=== PATIENT | female | born 1970 | race Asian ===

== ENCOUNTER → 2023-09-27 06:28 | Day surgery (SDC) | payer OTHER, SELFPAY | LOC: GI 06:28 | PROVIDERS: ATTENDING PHYSICIAN Internal Medicine | DX: Z12.11 Encounter for screening for malignant neoplasm of colon (principal); K64.8 Other hemorrhoids; R10.13 Epigastric pain; K29.50 Unspecified chronic gastritis without bleeding; B96.81 Helicobacter pylori [H. pylori] as the cause of diseases classified elsewhere | CPT/HCPCS: 43239; G0121; 88305; 88342 ==

== ENCOUNTER 2024-06-07 17:53 | Inpatient (IN) | payer OTHER, SELFPAY ==
[2024-06-07] VITALS (9 sets, daily range): BP systolic 90–134; BP diastolic 62–82; BMI 22.1; BMI 22.6
[2024-06-07 14:25] LABS: Urine Albumin 2+ (Neg - Trace); Urine Bilirubin Negative (Negative); Urine Character Clear (Clear); Urine Color Yellow; Urine Glucose 4+ (Negative); Urine Ketone Negative (Negative); Urine Leukocyte 2+ (Negative); Urine Nitrite Positive (Negative); Urine Occult Blood 3+ (Negative); Urine Specific Gravity 1.015 (<1.030); Urine Urobilinogen Negative (Neg - 1+)
[2024-06-07 14:35] LABS: Urine Bacteria Many (Negative); Urine Red Blood Cell 50-60 /HPF (0-2); Urine Squamous Cell >30 /LPF (Few); Urine White Cell >100 /HPF (0-5)
--- NOTE | 2024-06-07 14:41 | ED.GENMED ---
History of Present Illness
General
Chief Complaint: Abdominal Pain
Source: patient
Exam Limitations: none
Time Seen by Provider: 06/07/24 14:29
Nursing documentation reviewed up to this point in time: agreed with
History of Present Illness
History of Present Illness:
The patient is a 54 year old female with hx HTN presenting to the emergency department with 3 days of upper abdominal pain and fevers. Patient reports intermittent upper abdominal pain over the past 6 months which seem to come and go. However�pain
returned on Wednesday and has been relatively constant and associated with chills and subjective fevers. Patient denies any associated nausea, vomiting, or diarrhea. She denies any chest pain or shortness of breath�however states that when she takes
a deep breath it does exacerbate her abdominal pain. No urinary symptoms.
Patient denies any clear correlation to eating. No positional component to symptoms although seems to be worse with movement.
Past History
Past History
ED Past Medical History: HTN
ED Past Surgical History: None
Social History
Tobacco: Non-smoker
Alcohol: Occasional
Drug: None
Personal:
Living: with family
Employment: Employed
Review of Systems
Review of Systems
Allergies reviewed?: Yes
All Other Systems: ROS reviewed and negative except as documented in HPI and ROS
Phy Exam
Physical Exam
Physical Exam:
Vitals: BP soft, tachycardic. Afebrile
General: Patient is in no apparent distress.
Skin: Warm and dry, no rashes or lesions
Head: Normocephalic, atraumatic
Eyes: Sclera nonicteric. EOMs intact. No nystagmus.
Throat: Protecting airway
Neck: Normal ROM, no cervical spine tenderness, no meningismus. No JVD
Cardiac: Tachycardic, normal, no murmurs.
Pulm: Normal respiratory effort, no wheezes, rales, rhonchi heard on exam.
Abdomen: Abdomen soft. Mild tenderness in right upper quadrant and epigastric region. No rebound tenderness or guarding. Mild right CVA tenderness
Extremities: No evidence of cyanosis or edema. Palpable DP pulses bilaterally
Neuro: AAOx3. Grossly intact
Psychiatric: Normal affect.
Course
Orders/Labs/Results
Orders:
Orders
06/07/24 Breakfast
Clear Liquid
At Your Request: Limited Participation
06/07/24 14:12
Electrocardiogram (*1) Urgent
Reason for Study: Other
Other Reason for Exam: Possible Sepsis
EKG- Treatment ONCE
IV Insert/Care/Rem.- Treatment PRN
Test Result ONCE
06/07/24 14:20
Urinalysis Reflex To Culture Urgent
Date Specimen was Collected: 06/07/24
Time Specimen was Collected: 14:11
Urine Microscopic Reflex Cult Urgent
Urine Culture Urgent
ADDIE Source: U
Specimen Description:
Date Specimen was Collected: 06/07/24
Time Specimen was Collected: 14:11
06/07/24 14:33
Complete Blood Count/With Diff Urgent
Comprehensive Metabolic Panel Urgent
HCG, Serum Qualitative Screen Urgent
Comment: Notify provider if positive test present
Lipase Urgent
06/07/24 14:37
0.9% Sodium Chloride 1000 ml [Nss] 1,000 ml IV BOLUS
Ketorolac [Toradol] 15 mg IV NOW STA
06/07/24 14:40
Troponin I Urgent
06/07/24 15:20
CT Abd/pelvis W Iv Cont Urgent
Comment:
Reason For Exam: Right flank pain, fever
06/07/24 15:31
Lactic Acid Q4H
Comment: CANCEL 2nd LACTIC ACID IF 1st LACTIC ACID IS LESS THAN 2
Blood Culture Q30M
ADDIE Source: Blood/Venous
Specimen Description:
06/07/24 16:33
CefTRIAXone [Rocephin] 1,000 mg IV NOW STA
06/07/24 16:58
Blood Culture Q30M
ADDIE Source: Blood/Venous
Specimen Description:
06/07/24 16:59
Admit/Transfer Patient As Directed
Co-Sign Provider:
Level of Care: Inpatient admission
Assign to:: Medical/Surgical
Physician / Group: Lyle
Diagnosis: Pyelonephritis
Reason for Hospitalization: IVFs, IV abx
Expected length of stay greater than two midnights?: Yes
ELOS- Estimated Length of Stay in days: 3
I certify the patient meets the requirements for IP care: Yes
06/07/24 17:00
0.9% Sodium Chloride 1000 ml [Nss] 1,000 ml IV 125 mls/hr
06/07/24 17:02
PRN Pain Medication Management As Directed
May give lesser potent ordered pain med per pt: Yes
preference::
Protocol:: Medication orders for pain may be administered in a
manner that supports deferring to patient preference
when the pt is:
- Requesting an ordered lesser potent pain medication.
Least to most potent pain medications are defined
as: acetaminophen < NSAID < tramadol < opioids
(morphine, oxycodone, hydromorphone).
- Requesting a lesser dose of the same medication IF
ORDERED.
- Requesting a less intrusive route of administration
if both routes are prescribed by the provider (PO <
IV).
06/07/24 17:04
Code Status As Directed
Resuscitation Status: Full Code
06/07/24 17:37
US Abdomen Complete/Upper Urgent
Comment:
Reason For Exam: RUQ Pain
06/07/24 19:06
0.9% Sodium Chloride [Nss (Preservative Free)] See Protocol IV PRN PRN
Acetaminophen [Tylenol] 650 mg PO Q4HPRN PRN
Dextrose 50%-Water [Dextrose 50% Syringe] 12.5 grams IV [id number] PRN
Enoxaparin Sodium [Lovenox] 40 mg SC QPM
FOLic ACID [Folvite] 1 mg 0.9% Sodium Chloride 50 ml [Nss] 50 ml IV DAILYPRN
Glucagon [GlucaGen] 1 mg IM PRN PRN
Lorazepam [Ativan] 1 mg IV Q1HPRN PRN
Lorazepam [Ativan] 1 mg PO Q2HPRN PRN
Lorazepam [Ativan] 2 mg IV Q1HPRN PRN
Ondansetron Injectable [Zofran] 4 mg IV Q6HPRN PRN
06/07/24 19:06
Case Management Consult Once
Case Management Consult: Other
Comment: Substance abuse counseling
Activity As Directed
Activity Level: Out of Bed-Early Mobility
With Assistance
Bedside Glucose Monitoring As Directed
Frequency: AC&HS
Additional Instructions:: Change to q6h if pt on TPN, tube feeding or not eating
I&O [Intake/ Output] As Directed
Frequency: q12h
MSAS SCORE As Directed
MSAS Score 0-4: Repeat MSAS every 2 hours until 0-4 for three consecutive assessments, then every 4 hours x 48
hours.
MSAS Score 5-7: For MILD withdrawl symptoms. Repeat MSAS and RASS every 2 hours
MSAS Score 8-11: For MODERATE withdrawal symptoms. Repeat MSAS and RASS every 1 hour. Consider ICU or IMU
level of care.
MSAS Score > 11: For SEVERE withdrawal symptoms. Repeat MSAS and RASS every 1 hour. Notify provider, consider
ICU level of care.
MSAS Additional Instructions: If no improvement or no decrease in score from severe to moderate within 12
hours, consult psychiatry
MSAS Notify Provider: Notify provider if patient requires more than 10 mg of Lorazepam in eight hour period.
Vital Signs As Directed
Frequency: q4h
DX Deep Vein Thrombosis Video Routine
06/07/24 20:00
Thiamine Injection 200 mg IV Q12
06/08/24 06:00
Complete Blood Count/No Diff IN AM
GGTP IN AM
Hgba1c [Glycohemoglobin (HgbA1c)] IN AM
Magnesium IN AM
PTT IN AM
Phosphorus IN AM
Prothrombin Time IN AM
06/08/24 07:30
Insulin Aspart Corrective Low [Novolog Flexpen-Low Resistance] See Protocol SC AC
06/08/24 08:00
FOLic ACID [Folvite] 1 mg PO DAILY
06/08/24 16:00
CefTRIAXone [Rocephin] 1,000 mg IV Q24H
06/10/24 20:00
Thiamine HCl [Vitamin B1] 100 mg PO BID
Abnormal Lab Results
06/07/24 06/07/24
14:20 14:33
RBC 3.49 L 10^6/uL
(4.20-5.40)
Hct 35.0 L %
(37.0-47.0)
MCV 100.3 H fL
(81.0-99.0)
MCH 35.2 H pg
(27.0-31.0)
Absolute Lymphs (auto) 0.8 L 10^3/uL
(1.2-3.4)
Absolute Monos (auto) 0.9 H 10^3/uL
(0.1-0.6)
Neutrophils % 78.0 H %
(42.2-75.2)
Lymphocytes % 9.4 L %
(20.5-51.1)
Monocytes % 11.2 H %
(1.7-9.3)
Glucose 220 H mg/dl
(70-99)
AST 56 H U/L
(14-36)
Total Protein 6.2 L g/dl
(6.3-8.2)
Ur Occult Blood Reflex 3+ A
(Negative)
Urine Nitrite (Reflex) Positive A
(Negative)
Leukocyte Esterase Rfl 2+ A
(Negative)
Urine RBC 50-60 A /HPF
(0-2)
Urine WBC (Reflex) >100 A /HPF
(0-5)
Urine Bacteria (Reflex) Many A
(Negative)
Urine Glucose 4+ A
(Negative)
Urine Albumin (Reflex) 2+ A
(Neg - Trace)
06/07/24 14:33
06/07/24 14:33
Vital Signs
Initial and Last Documented VS:
Initial Vital Signs
Temp Pulse Resp BP Pulse Ox
98.7 F 94 16 120/76 98
06/07/24 14:09 06/07/24 14:09 06/07/24 14:09 06/07/24 14:09 06/07/24 14:09
Last Documented Vital Signs
Temp Pulse Resp BP Pulse Ox
99.7 F 81 20 134/82 99
06/07/24 19:09 06/07/24 19:09 06/07/24 19:09 06/07/24 19:09 06/07/24 19:09
MDM/Problems Addressed
Differential Diagnosis Includes:
Not limited to: Acute cholecystitis, biliary colic, pancreatitis, cholangitis, cholangitis, UTI, pyelonephritis, nephrolithiasis, etc.
MDM/Problems Addressed:
54-year-old female presenting with intermittent right upper abdominal pain becoming more constant over the past 3 days and associated with subjective fevers. No chest pain, shortness of breath, vomiting. No urinary symptoms. Patient with soft BP
and tachycardic on arrival. She is afebrile. Physical exam as above. Patient in no apparent distress. Abdomen soft with mild tenderness in epigastric/right upper quadrant. No rebound tenderness or guarding. There is some mild right CVA
tenderness, as well. Cardio/pulmonary assessment unremarkable. Basic screening labs were sent in triage significant for hyperglycemia. No leukocytosis or abnormalities in LFTs. Urine also sent in triage which appears grossly infected.
Differential broad at this time. Initially considered right upper quadrant ultrasound to evaluate hepatobiliary system for infectious process although given no leukocytosis/LFT abnormalities along with grossly infected urine�will check CT
abdomen/pelvis with IV contrast with concerns of possible pyelonephritis. Patient given IV Toradol and 1 L IV fluids.
Update: Into reassess patient at bedside. Blood pressure mildly improved after IV fluid along with normalization of heart rate. CT scan shows findings consistent with pyelonephritis. No evidence of gallbladder etiology on CT. Discussed with
patient at bedside. Given abnormal vital signs and evidence of pyelonephritis�feel patient should be admitted for IV antibiotics and further monitoring. Patient given IV Rocephin in ED. As she is still complaining of right upper abdominal pain�I
did consider abdominal ultrasound to ensure no gallbladder disease although will defer decision to hospitalist. Admitted to hospital service in stable condition with acute pyelonephritis and for IV antibiotics.
Chronic conditions affecting care:
HTN
Acute Exacerbation and/or Progression of Chronic Illness:
Acute pyelonephritis
*Radiology
Radiology exam reviewed: preliminary read by ED provider (Stranding of right kidney) and radiology read reviewed (Findings consistent with right pyelonephritis; no abnormalities of gallbladder)
*Pulse Oximetry
Patient hypoxic: no
*EKG
Interpreted by ED Provider?: Yes
EKG Intrepretation Date: 06/07/24
Interpretation: abnormal
Comparison EKG: changes noted
Heart Rate: 106
Rate: tachycardiac
Rhythm: sinus
[place]: normal axis
Interval: long QT
QRS Pattern: normal QRS
Ischemia: non-specific ST changes
*Information Systems Project Manager Interpretation
Rate: tachycardiac
Interpretation: abnormal
Heart Rate: 116
Rhythm: sinus
*Critical Care Note
Total Time (30-74mins, 75-104mins- exclusive of procedures): Not Applicable
Patient Management
Discussion with other providers: Hospitalist
Escalation/DeEscalation of care consider admission/obs:
Admit for IV antibiotics
ED Attending Note
-
Portions of this chart may have been created with voice recognition software.� Occasional wrong word or��sound alike� substitutions may have occurred due to the inherent limitations of voice recognition software.
Discharge Plan
Departure
Patient Disposition: Admit
Date of Disposition: 06/07/24
Time of Disposition: 16:34
Presentation/result/management discussed w/ accepting MD/DO: Hospitalist
Discharge Problem:
Pyelonephritis
Interventions
Interventions:
*Risk Screen - Suicide Last Done: 06/07/24 14:09
*General Assessment Last Done: 06/07/24 14:28
*Neglect/Abuse Screening Last Done: 06/07/24 14:09
*ED- Fall Risk Assessment Last Done: 06/07/24 14:28
*ED COVID-19 Vaccine History Last Done: 06/07/24 14:28
*Nursing Disposition Last Done: 06/07/24 18:50
OP-Kjsxms-Nmthugvfkh Assessment Last Done: 06/07/24 14:34
Discharge Date and Time
Discharge Date/Time: 06/07/24 18:45
[2024-06-07] MEDS: TORADOL 15 MG IV (14:42)
[2024-06-07] MEDS: NSS 1000 IV ×2 (14:42→17:06)
[2024-06-07 14:57] LABS: HCG, Serum Qualitative Screen Negative
[2024-06-07 15:00] LABS: ALT (SGPT) 31 U/L (0-35); AST (SGOT) 56 U/L (14-36); Albumin 3.5 g/dl (3.5-5.0); Alkaline Phosphatase 114 U/L (38-126); Blood Urea Nitrogen 16 mg/dl (7-17); Calcium 9.2 mg/dl (8.4-10.2); Carbon Dioxide 24 mmol/L (22-30); Chloride 104 mmol/L (98-107); Estimated Creatinine Clearance 68 ml/min; Glucose 220 mg/dl (70-99); Lipase 50 U/L (23-300); Potassium 3.7 mmol/L (3.5-5.1); Sodium 137 mmol/L (135-145); Total Bilirubin 0.9 mg/dl (0.2-1.3); Total Protein 6.2 g/dl (6.3-8.2); eGFR > 60.00
[2024-06-07 15:11] LABS: Troponin I < 0.012 ng/ml
[2024-06-07 15:14] LABS: Hemoglobin 12.3 g/dL (12.0-16.0); Mean Corp Hgb Conc. 35.1 g/dL (33.0-37.0); Mean Corpuscular Hgb 35.2 pg (27.0-31.0); Mean Corpuscular Volume 100.3 fL (81.0-99.0); Mean Platelet Volume 9.1 fL (7.4-10.4); Platelet Count 174 10^3/uL (130-400); Red Blood Cell Count 3.49 10^6/uL (4.20-5.40); Red Cell Dist. Width 12.9 % (11.5-14.5); White Blood Cell Count 8.3 10^3/uL (4.8-10.8)
[2024-06-07 15:52] LABS: Lactic Acid 1.6 mmol/L (0.7-2.0)
[2024-06-07 16:00] LABS: % Basophils 0.5 % (0-2); % Eosinophils 0.5 % (0-6); % Immature Granulocytes 0.4 % (0-0.5); % Lymphocytes 9.4 % (20.5-51.1); % Monocytes 11.2 % (1.7-9.3); Absolute Lymphocytes 0.8 10^3/uL (1.2-3.4); Absolute Monocytes 0.9 10^3/uL (0.1-0.6); Absolute Neutrophils 6.5 10^3/uL (1.4-6.5); Nucleated Red Blood Cells % 0 %
[2024-06-07] MEDS: ROCEPHIN 1000 MG IV (17:00)
--- NOTE | 2024-06-07 17:09 | HPS.HSE ---
Family Physician
-
Family Physician: Chiara Figueroa DO
Chief Complaint
-
Abdominal Pain
History of Present Illness
Patient is a 54 y/o female past medical history of hypertension who presents with abdominal pain. Patient reports intermittent right upper quadrant abdominal pain for quite sometime. Over the past 3 days she notes pain was worse and associated
with fevers/chills. She notes chills would improve with ibuprofen but quickly recurred. She admits to nausea and vomiting over the past few days with poor oral intake. She admits to slight dysuria and some sensations of incomplete emptying.
Medical History
Past Medical History
Past Medical History: Reports Other
Additional Past Medical History:
Essential Hypertension
Past Surgical History: Reports
Social History
Tobacco: Non-smoker
Alcohol: Daily (2-3 Glasses of Wine)
Family History
Family History: Not pertinent
Allergies / Home Medications
Allergies reflects when Allergies were last updated in [facility].
Home Medications with original date entered in [facility]
Allergy/Medication List:
Allergies
Allergy/AdvReac Type Severity Reaction Status Date / Time
No Known Allergies Allergy Verified 06/07/24 17:00
Home Medications
acetaminophen 325 mg tablet 650 mg PO Q4HPRN PRN mild pain/fever 06/07/24
ibuprofen 200 mg tablet 200 mg PO Q6HPRN PRN mild pain/fever 06/07/24
lisinopril 10 mg tablet 10 mg PO DAILY 06/07/24
Review of Systems
-
A 12 point ROS was completed and negative except as noted: Yes
Constitutional: Reports Fever and Chills
Respiratory: Denies Cough or Trouble Breathing
Cardiac: Denies Chest Pain or Palpitations
Abdomen/GI: Reports See HPI
: Reports See HPI
Physical Exam
Vital Signs
Vital Signs
Temp Pulse Resp BP Pulse Ox
98.3 F 81 18 109/74 98
06/07/24 17:07 06/07/24 16:44 06/07/24 16:44 06/07/24 16:44 06/07/24 16:44
Physical Exam
General: Comfortable and Conversant
HEENT: Anicteric and Moist mucous membranes
Respiratory: Clear and Non Labored Respirations
Cardiac: S1/S2 and Regular Rhythm
GI: Soft and Tender (Epigastric/Right Upper Quadrant Region without rebound or guarding)
Rectal: Deferred by Provider
Genito-urinary: Other (Right CVA Tenderness)
Musculoskeletal: No Clubbing, No Cyanosis and No Edema
Skin: Warm and Dry
Neuro: Awake, Alert, Oriented and Nonfocal/grossly intact
Psych: Calm
Laboratory Results
-
06/07/24 14:33
06/07/24 14:33
Laboratory Results
Lactic Acid Cancelled 06/07/24 19:15
Total Bilirubin 0.9 mg/dl (0.2-1.3) 06/07/24 14:33
AST 56 U/L (14-36) H 06/07/24 14:33
ALT 31 U/L (0-35) 06/07/24 14:33
Alkaline Phosphatase 114 U/L (38-126) 06/07/24 14:33
Troponin I < 0.012 ng/ml 06/07/24 14:40
Lipase 50 U/L (23-300) 06/07/24 14:33
Data Reviewed
-
CT Scan: Report Reviewed by me
Lab Data: Labs Reviewed by me
Impression/Plan
-
Sepsis secondary to Acute Pyelonephritis
-Continue Rocephin
-Continue IVFs
-Await urine and blood cultures
-Check Abd US given ongoing right upper quadrant pain to evaluate for possible gallbladder pathology
Hyperglycemia - No prior reports of diabetes
-Check HgbA1c
Essential Hypertension
-Hold lisinopril as BP running on the low side
Alcohol Use Disorder
-Continue thiamine and folic acid
-Continue alcohol withdrawal protocol
DVT proph: Lovenox
Code Status: Full Code
--- NOTE | 2024-06-07 17:59 | W.PN.UPDATE ---
Update Note
Progress Note Update
This is an addendum to the H&P written by Connie Butler on06/07/2024. Patient seen and examined independently with PA.
54-year-old female past medical history of hypertension presenting with 3 days of upper abdominal/epigastric pain and fever and urinary discomfort. Intermittent upper abdominal pain for the past 6 months. No nausea vomiting or diarrhea. Recently
had EGD and colonoscopy in August which was unremarkable.
Labs unremarkable apart from blood sugar of 220. AST of 56.
Urinalysis indicative of infection. CT abdomen pelvis shows heterogeneous enhancement of the right kidney with some mild perinephric stranding. Contracted gallbladder likely postprandial.
Patient with right-sided pyelonephritis.
Blood cultures pending. Urine culture pending. IV fluids. Ceftriaxone. Given intermittent ongoing right upper quadrant and epigastric pain we will also check abdominal ultrasound to rule out cholelithiasis.
[2024-06-07] MEDS: LOVENOX 40 MG SC (19:40)
[2024-06-07] MEDS: ZOFRAN 4 MG IV (19:41)
[2024-06-07] MEDS: THIAMINE INJECTION 200 MG IV (19:41)
[2024-06-07] MEDS: TYLENOL 650 MG PO (19:42)
[2024-06-07 21:29] LABS: Glucose - Point of Care 111 mg/dl (70-99)
[2024-06-07] MEDS: NORCO 5/325 1 TABLET PO (21:33)
[2024-06-08] MEDS: NSS 1000 IV ×3 (02:14→20:08)
[2024-06-08] MEDS: NORCO 5/325 1 TABLET PO (04:06)
[2024-06-08] MEDS: TYLENOL 325 MG PO (04:34)
--- NOTE | 2024-06-08 05:59 | PTCARENOTE ---
1941 pt c/o abd pain - administered Tylenol 650mg w/some eff.
2132 - pt reports pain is back 09/07. - s/w OUTDOOR STUDIES PROFESSOR Cormier - Administered Dudley 5/325 1 tab w/+eff. pain 05/08.
405 pt reports pain 10/08, and feeling hot. wyqw=[id number]. provided patient w/ cool wash clothe. s/w OUTDOOR STUDIES PROFESSOR Cormier - Administered Dudley 5/325 1 tab and Tylenol 325mg. w/+eff. prov
[2024-06-08 07:42] LABS: Hematocrit 31.6 % (37.0-47.0); Hemoglobin 10.7 g/dL (12.0-16.0); Mean Corp Hgb Conc. 33.9 g/dL (33.0-37.0); Mean Corpuscular Hgb 34.6 pg (27.0-31.0); Mean Corpuscular Volume 102.3 fL (81.0-99.0); Mean Platelet Volume 9.4 fL (7.4-10.4); Platelet Count 153 10^3/uL (130-400); Red Blood Cell Count 3.09 10^6/uL (4.20-5.40); Red Cell Dist. Width 12.9 % (11.5-14.5); White Blood Cell Count 6.4 10^3/uL (4.8-10.8)
[2024-06-08 07:49] LABS: INR 1.03
[2024-06-08 07:50] LABS: APTT 36.3 Sec (23.4-35.0)
[2024-06-08 08:00] VITALS: BP 102/71
[2024-06-08 08:15] LABS: GGTP 472 U/L (12-43); Magnesium 2.2 mg/dl (1.6-2.3); Phosphorus 3.1 mg/dl (2.5-4.5)
[2024-06-08 09:02] LABS: Glycohemoglobin (HgbA1c) 5.6 % (4.0-5.6)
[2024-06-08 09:23] LABS: Glucose - Point of Care 88 mg/dl (70-99)
[2024-06-08] MEDS: NOVOLOG FLEXPEN-LOW RESISTANCE SC ×2 (10:43→14:04)
[2024-06-08] MEDS: FOLVITE 1 MG PO (10:58)
[2024-06-08] MEDS: THIAMINE INJECTION 200 MG IV ×2 (10:59→20:09)
--- NOTE | 2024-06-08 12:58 | W.PN.HOSP.TC ---
Today's Communication/Plan
-
Assessment / Plan
Assessment / Plan
General: No Apparent Distress, Comfortable and Conversant
HEENT: NormoCephalic, Moist mucous membranes, Atraumatic
Respiratory: Clear and Non Labored Respirations
Cardiac: S1/S2 and Regular Rhythm; No Rub or Gallop
GI: Soft, Non Tender, Non Distended and Normal Bowel Sounds
Musculoskeletal: No Edema, no deformity
Skin: Warm and dry
: NO Michelle, mild right flank pain
Neuro: Awake, Alert, Nonfocal/grossly intact
Psych: Calm and Intact Judgment/Insight
Ms. Borges is a 54-year-old female with medical history of hypertension who presented with right upper quadrant pain that radiated to the right side of her back associated with urinary frequency and fever. Her symptoms have been ongoing for 3 days
prior to arrival. She has had intermittent occurrences of the same abdominal discomfort over the past 6 months. She reports having had an EGD and colonoscopy in August 2024 which were unremarkable. In the ED, she was tachycardic and tachypneic, but
normotensive and afebrile. Urinalysis showed pyuria and bacteriuria. She had no leukocytosis and her lactic acid was within normal limits. CT imaging showed right-sided pyelonephritis and a small calcified right renal artery aneurysm. Right
upper quadrant ultrasound showed no evidence of biliary obstruction or cholecystitis. She was bolused IV fluids and IV antibiotics after cultures were obtained. She was admitted for further evaluation and management of right-sided pyelonephritis.
Sepsis secondary to right-sided pyelonephritis:
- Continue IV fluids
- Switched antibiotics to Zosyn for now considering blood cultures resulting positive for ESBL E. coli, will follow-up sensitivities
- Clinically stable
- Continue Tylenol as needed for fever and pain control as needed
E. coli bacteremia:
- Blood and urine cultures positive for E. coli, blood culture showing ESBL
- Repeat cultures obtained
- Will follow-up sensitivities
- Continue antibiotics with Zosyn for now
Right renal artery aneurysm:
- CT imaging shows 0.7 cm rim calcification in the right kidney most likely representing a small calcified renal artery aneurysm
- Appears stable compared to CT imaging from 01/10/2021
- Outpatient follow-up
CODE STATUS: Full code
Anticipated Discharge: 24 - 48 hours
Subjective/Interval History
-
Date of Service: June 08, 2024
Patient was seen and examined at bedside this morning. Right flank pain improved but still present.
Objective Data
-
Labs:
Laboratory Results
06/08/24
06:53
WBC 6.4
Hgb 10.7 L
Hct 31.6 L
Plt Count 153
PT 14.0
INR 1.03
APTT 36.3 H
Vital Signs:
Vital Signs
Temp Pulse Resp BP Pulse Ox
98.5 F 83 14 102/71 94
06/08/24 08:00 06/08/24 08:00 06/08/24 08:00 06/08/24 08:00 06/08/24 08:00
I&O
06/07/24 06/08/24 06/09/24
06:59 06:59 06:59
Intake Total 2299 / 2299
Balance 2299 / 2299
Review of Systems
-
History Source: Patient
All other systems: Reviewed and negative
Genitourinary: Reports Flank Pain (Right flank pain)
Physical Exam
-
General: No Apparent Distress
[2024-06-08 13:15] LABS: Glucose - Point of Care 91 mg/dl (70-99)
[2024-06-08] MEDS: ZOSYN 50 IV ×2 (14:03→20:09)
[2024-06-08] MEDS: TYLENOL 650 MG PO (14:03)
[2024-06-08 15:00] VITALS: BP 115/71
--- NOTE | 2024-06-08 15:18 | CM ---
Patient seen bedside.
IA completed.
Patient independent prior to admission without assistive devices, drives and works.
Patient lives with spouse and children in a 2 story home.
Patient denies need for ETOH resources.
PCP: [facility] (Dr Figueroa- no longer there)
Pharmacy: [facility]
Plan: home no needs.
[2024-06-08] MEDS: LOVENOX 40 MG SC (17:40)
[2024-06-08] MEDS: NOVOLOG FLEXPEN-LOW RESISTANCE 1 UNITS SC (17:41)
[2024-06-08 17:52] LABS: Glucose - Point of Care 179 mg/dl (70-99)
--- NOTE | 2024-06-08 20:20 | PTCARENOTE ---
Pt transferred from 1 Acute to room 426. Pt reports 3/10 epigastric pain but denies the need for pain medication at this time. Bed in lowest position, call blackmon in reach. BP on transfer 155/99, HR 85, temp 99.1F. Pt and family updated on plan of
care at bedside.
[2024-06-08 20:22] VITALS: BP 155/99
[2024-06-08 21:38] LABS: Glucose - Point of Care 87 mg/dl (70-99)
[2024-06-08 22:57] VITALS: BP 135/82
[2024-06-09] MEDS: ZOSYN 50 IV ×4 (02:20→20:25)
[2024-06-09] MEDS: NSS 1000 IV ×3 (04:56→23:36)
[2024-06-09 07:12] VITALS: BP 137/87
[2024-06-09 07:29] LABS: Hematocrit 32.2 % (37.0-47.0); Hemoglobin 11.2 g/dL (12.0-16.0); Mean Corp Hgb Conc. 34.8 g/dL (33.0-37.0); Mean Corpuscular Volume 100.6 fL (81.0-99.0); Mean Platelet Volume 9.4 fL (7.4-10.4); Platelet Count 178 10^3/uL (130-400); Red Cell Dist. Width 12.5 % (11.5-14.5); White Blood Cell Count 4.6 10^3/uL (4.8-10.8)
[2024-06-09 07:39] LABS: ALT (SGPT) 34 U/L (0-35); AST (SGOT) 54 U/L (14-36); Albumin 3.1 g/dl (3.5-5.0); Alkaline Phosphatase 178 U/L (38-126); Blood Urea Nitrogen 5 mg/dl (7-17); Calcium 8.7 mg/dl (8.4-10.2); Carbon Dioxide 27 mmol/L (22-30); Chloride 105 mmol/L (98-107); Estimated Creatinine Clearance 79 ml/min; Glucose 98 mg/dl (70-99); Potassium 4.1 mmol/L (3.5-5.1); Sodium 139 mmol/L (135-145); Total Bilirubin 0.7 mg/dl (0.2-1.3); Total Protein 5.6 g/dl (6.3-8.2); eGFR > 60.00
[2024-06-09 07:52] LABS: % Basophils 0.2 % (0-2); % Eosinophils 1.7 % (0-6); % Immature Granulocytes 0.7 % (0-0.5); % Lymphocytes 25.9 % (20.5-51.1); % Monocytes 15.9 % (1.7-9.3); % Neutrophils 55.6 % (42.2-75.2); Absolute Eosinophils 0.1 10^3/uL (0-0.7); Absolute Lymphocytes 1.2 10^3/uL (1.2-3.4); Absolute Monocytes 0.7 10^3/uL (0.1-0.6); Absolute Neutrophils 2.6 10^3/uL (1.4-6.5); Nucleated Red Blood Cells % 0 %
[2024-06-09 08:40] LABS: Glucose - Point of Care 99 mg/dl (70-99)
[2024-06-09] MEDS: NOVOLOG FLEXPEN-LOW RESISTANCE SC ×3 (09:59→17:32)
[2024-06-09] MEDS: FOLVITE 1 MG PO (09:59)
[2024-06-09] MEDS: THIAMINE INJECTION 200 MG IV ×2 (10:00→20:25)
[2024-06-09 11:52] LABS: Glucose - Point of Care 102 mg/dl (70-99)
--- NOTE | 2024-06-09 14:12 | W.PN.HOSP.TC ---
Today's Communication/Plan
-
Assessment / Plan
Assessment / Plan
General: No Apparent Distress, Comfortable and Conversant
HEENT: NormoCephalic, Moist mucous membranes, Atraumatic
Respiratory: Clear and Non Labored Respirations
Cardiac: S1/S2 and Regular Rhythm; No Rub or Gallop
GI: Soft, Non Tender, Non Distended and Normal Bowel Sounds
Musculoskeletal: No Edema, no deformity
Skin: Warm and dry
: NO Michelle, mild right flank pain
Neuro: Awake, Alert, Nonfocal/grossly intact
Psych: Calm and Intact Judgment/Insight
Ms. Borges is a 54-year-old female with medical history of hypertension who presented with right upper quadrant pain that radiated to the right side of her back associated with urinary frequency and fever. Her symptoms have been ongoing for 3 days
prior to arrival. She has had intermittent occurrences of the same abdominal discomfort over the past 6 months. She reports having had an EGD and colonoscopy in August 2024 which were unremarkable. In the ED, she was tachycardic and tachypneic, but
normotensive and afebrile. Urinalysis showed pyuria and bacteriuria. She had no leukocytosis and her lactic acid was within normal limits. CT imaging showed right-sided pyelonephritis and a small calcified right renal artery aneurysm. Right
upper quadrant ultrasound showed no evidence of biliary obstruction or cholecystitis. She was bolused IV fluids and IV antibiotics after cultures were obtained. She was admitted for further evaluation and management of right-sided pyelonephritis.
Sepsis secondary to right-sided pyelonephritis:
- Continue IV fluids
- Continue antibiotics with Zosyn for now considering ESBL E. coli positive blood and urine cultures, will follow-up sensitivities
- Clinically stable, afebrile since yesterday afternoon at 1500
- Continue Tylenol as needed for fever and pain control as needed
E. coli bacteremia:
- Blood and urine cultures positive for ESBL E. coli
- Repeat cultures negative to date
- Will follow-up sensitivities
- Continue antibiotics with Zosyn for now
Right renal artery aneurysm:
- CT imaging shows 0.7 cm rim calcification in the right kidney most likely representing a small calcified renal artery aneurysm
- Appears stable compared to CT imaging from 01/10/2021
- Outpatient follow-up
CODE STATUS: Full code
Anticipated Discharge: 24 - 48 hours
Subjective/Interval History
-
Date of Service: June 09, 2024
Patient was seen and examined at bedside this morning. Reports feeling much better today. Continuing treatment of ESBL E. coli bacteremia with Zosyn for now.
Objective Data
-
Labs:
Laboratory Results
06/09/24
06:48
WBC 4.6 L
Hgb 11.2 L
Hct 32.2 L
Plt Count 178
Sodium 139
Potassium 4.1
Chloride 105
Carbon Dioxide 27
BUN 5 L
Creatinine 0.6
Glucose 98
Calcium 8.7
Total Bilirubin 0.7
AST 54 H
ALT 34
Alkaline Phosphatase 178 H
Vital Signs:
Vital Signs
Temp Pulse Resp BP Pulse Ox
98.1 F 74 18 137/87 95
06/09/24 07:12 06/09/24 07:12 06/09/24 07:12 06/09/24 07:12 06/09/24 07:12
I&O
06/08/24 06/09/24 06/10/24
06:59 06:59 06:59
Intake Total 2299
Balance 2299
Review of Systems
-
History Source: Patient
All other systems: Reviewed and negative
Genitourinary: Reports Flank Pain (Right flank pain)
Physical Exam
-
General: No Apparent Distress
[2024-06-09 15:02] VITALS: BMI 22.6
[2024-06-09 15:39] VITALS: BP 132/85
[2024-06-09 17:21] LABS: Glucose - Point of Care 89 mg/dl (70-99)
[2024-06-09] MEDS: LOVENOX 40 MG SC (17:49)
[2024-06-09 21:19] LABS: Glucose - Point of Care 84 mg/dl (70-99)
[2024-06-09 22:56] VITALS: BP 148/98
[2024-06-10] MEDS: ZOSYN 50 IV ×2 (01:50→08:33)
[2024-06-10 07:00] VITALS: BP 152/96
[2024-06-10 07:27] LABS: Hematocrit 35.2 % (37.0-47.0); Hemoglobin 12.4 g/dL (12.0-16.0); Mean Corp Hgb Conc. 35.2 g/dL (33.0-37.0); Mean Corpuscular Hgb 34.6 pg (27.0-31.0); Mean Corpuscular Volume 98.3 fL (81.0-99.0); Mean Platelet Volume 9.3 fL (7.4-10.4); Platelet Count 222 10^3/uL (130-400); Red Blood Cell Count 3.58 10^6/uL (4.20-5.40); Red Cell Dist. Width 12.3 % (11.5-14.5); White Blood Cell Count 5.7 10^3/uL (4.8-10.8)
[2024-06-10 07:51] LABS: Glucose - Point of Care 105 mg/dl (70-99)
[2024-06-10 07:59] LABS: Blood Urea Nitrogen 5 mg/dl (7-17); Calcium 9.2 mg/dl (8.4-10.2); Carbon Dioxide 29 mmol/L (22-30); Chloride 105 mmol/L (98-107); Estimated Creatinine Clearance 79 ml/min; Glucose 100 mg/dl (70-99); Potassium 4.5 mmol/L (3.5-5.1); Sodium 144 mmol/L (135-145); eGFR > 60.00
[2024-06-10] MEDS: NOVOLOG FLEXPEN-LOW RESISTANCE SC ×2 (08:11→12:12)
[2024-06-10] MEDS: FOLVITE 1 MG PO (08:12)
[2024-06-10] MEDS: THIAMINE INJECTION 200 MG IV (08:12)
[2024-06-10 08:53] LABS: Absolute Neutrophils -Man Diff 2.3 10^3/uL (1.4-6.5); Atypical Lymphocytes 2 %; Band Neutrophils 3 % (0-3); Eosinophils 2 % (0-6); Lymphocytes 43 % (20-51); Metamyelocytes 1 % (-); Monocytes 10 % (2-9); Myelocytes 1 % (-); Platelets Checked Yes; Segmented Neutrophils 38 % (42-75)
[2024-06-10 08:54] LABS: Normal RBC Morphology Yes; Total Cells Counted 100
[2024-06-10] MEDS: CIPRO 750 MG PO (09:44)
--- NOTE | 2024-06-10 11:07 | W.DCSUMMARY ---
Discharge Summary
Discharge Data
Date of Admission: 06/07/24
Date of Discharge: 06/10/24
-
Pending Results: No
Hospital Course
Ms. Borges is a 54-year-old female with medical history of hypertension who presented with right upper quadrant pain that radiated to the right side of her back associated with urinary frequency and fever. Her symptoms had been ongoing for 3 days
prior to arrival. She has had intermittent occurrences of the same abdominal discomfort over the past 6 months. She reported having had an EGD and colonoscopy in August 2024 which were unremarkable. In the ED, she was tachycardic and tachypneic,
but normotensive and afebrile. Urinalysis showed pyuria and bacteriuria. She had no leukocytosis and her lactic acid was within normal limits. CT imaging showed right-sided pyelonephritis and a small calcified right renal artery aneurysm. Right
upper quadrant ultrasound showed no evidence of biliary obstruction or cholecystitis. She was bolused IV fluids and started on IV antibiotics after cultures were obtained. She was admitted for further evaluation and management of sepsis secondary
to right-sided pyelonephritis.
She was initially treated with IV ceftriaxone. However, after blood and urine cultures resulted positive for ESBL E. coli she was switched to Zosyn. She clinically improved with this antibiotic treatment. Final culture results showed multidrug
resistance including resistance to ceftriaxone but sensitivity to ciprofloxacin. Repeat blood cultures were negative. She was transitioned to antibiotics with ciprofloxacin. She will be discharged to home with a prescription for an additional 7
days of antibiotics to complete a total effective treatment course of 10 days.
During her hospitalization she did have a few episodes of mild hyperglycemia. However her hemoglobin A1c was within normal limits at 5.6%. We did discuss the importance of following up with her primary care physician for ongoing blood sugar
monitoring and initiation of diabetic medications if needed.
Of note, she had an incidental CT finding of 0.7 cm rim calcification in the right kidney most likely representing a small calcified renal artery aneurysm. This aneurysm appears stable compared to CT imaging from 01/10/2021. The patient and her
have been made aware of this renal artery aneurysm and the need to continue follow-up in the outpatient setting for ongoing monitoring. Her blood pressure was initially on the low side during this hospitalization but recovered with IV
fluids and antibiotic treatment as outlined above. Her renal function remained within normal limits. She will be continued on her lisinopril 10 mg daily at time of hospital discharge. She should follow-up with her primary care physician for
ongoing blood pressure monitoring and dosage adjustments as needed.
Patient was medically stable at time of hospital discharge. She should complete the 7-day course of ciprofloxacin as prescribed. She should continue her home blood pressure medication and follow-up with her primary care physician. She should
continue regular monitoring of her right renal artery aneurysm in the outpatient setting.
General: No Apparent Distress, Comfortable and Conversant
HEENT: NormoCephalic, Moist mucous membranes, Atraumatic
Respiratory: Clear and Non Labored Respirations
Cardiac: S1/S2 and Regular Rhythm; No Rub or Gallop
GI: Soft, Non Tender, Non Distended and Normal Bowel Sounds
Musculoskeletal: No Edema, no deformity
Skin: Warm and dry
: NO Michelle, mild right flank pain
Neuro: Awake, Alert, Nonfocal/grossly intact
Psych: Calm and Intact Judgment/Insight
Discharge Plan
-
Patient Disposition: Home (Routine Discharge)
Discharge Diagnosis/Procedures: Right-sided pyelonephritis, ESBL E. coli bacteremia
Diet: No restrictions
Activity: No restrictions
Activity Restrictions/Additional Instructions:
Ms. Borges is a 54-year-old female with medical history of hypertension who presented with right upper quadrant pain that radiated to the right side of her back associated with urinary frequency and fever. Her symptoms had been ongoing for 3 days
prior to arrival. She has had intermittent occurrences of the same abdominal discomfort over the past 6 months. She reported having had an EGD and colonoscopy in August 2024 which were unremarkable. In the ED, she was tachycardic and tachypneic,
but normotensive and afebrile. Urinalysis showed pyuria and bacteriuria. She had no leukocytosis and her lactic acid was within normal limits. CT imaging showed right-sided pyelonephritis and a small calcified right renal artery aneurysm. Right
upper quadrant ultrasound showed no evidence of biliary obstruction or cholecystitis. She was bolused IV fluids and started on IV antibiotics after cultures were obtained. She was admitted for further evaluation and management of sepsis secondary
to right-sided pyelonephritis.
She was initially treated with IV ceftriaxone. However, after blood and urine cultures resulted positive for ESBL E. coli she was switched to Zosyn. She clinically improved with this antibiotic treatment. Final culture results showed multidrug
resistance including resistance to ceftriaxone but sensitivity to ciprofloxacin. Repeat blood cultures were negative. She was transitioned to antibiotics with ciprofloxacin. She will be discharged to home with a prescription for an additional 7
days of antibiotics to complete a total effective treatment course of 10 days.
During her hospitalization she did have a few episodes of mild hyperglycemia. However her hemoglobin A1c was within normal limits at 5.6%. We did discuss the importance of following up with her primary care physician for ongoing blood sugar
monitoring and initiation of diabetic medications if needed.
Of note, she had an incidental CT finding of 0.7 cm rim calcification in the right kidney most likely representing a small calcified renal artery aneurysm. This aneurysm appears stable compared to CT imaging from 01/10/2021. The patient and her
have been made aware of this renal artery aneurysm and the need to continue follow-up in the outpatient setting for ongoing monitoring. Her blood pressure was initially on the low side during this hospitalization but recovered with IV
fluids and antibiotic treatment as outlined above. Her renal function remained within normal limits. She will be continued on her lisinopril 10 mg daily at time of hospital discharge. She should follow-up with her primary care physician for
ongoing blood pressure monitoring and dosage adjustments as needed.
Patient was medically stable at time of hospital discharge. She should complete the 7-day course of ciprofloxacin as prescribed. She should continue her home blood pressure medication and follow-up with her primary care physician. She should
continue regular monitoring of her right renal artery aneurysm in the outpatient setting.
Referrals:
Bozena Figueroa DO [Family Provider] -
Prescriptions:
New
ciprofloxacin HCl 750 mg tablet
750 mg PO BID 7 Days Qty: 14 0RF
Continued
acetaminophen 325 mg Tablet
650 mg PO Q4HPRN PRN (Reason: mild pain/fever)
lisinopril 10 mg Tablet
10 mg PO DAILY
ibuprofen 200 mg Tablet
200 mg PO Q6HPRN PRN (Reason: mild pain/fever)
Discharge Orders:
Discharge Patient (As Directed); Ordered 06/10/24
Ordered By: Raoul Bullard
Discharge Date and Time
Print Language: SERBIAN
[2024-06-10 11:51] LABS: Glucose - Point of Care 73 mg/dl (70-99)
== END 2024-06-10 14:07 | disposition home or self-care (01) | DRG 872 ==
LOC: 4 WEST ACU 17:53
PROVIDERS: Emergency Medicine; Physician Assistant; Physician Assistant Medical; ADMITTING PHYSICIAN Hospitalist; ATTENDING PHYSICIAN Internal Medicine; EMERGENCY PHYSICIAN Student in an Organized Health Care Education/Training Program; FAMILY PHYSICIAN Student in an Organized Health Care Education/Training Program
DX: A41.51 Sepsis due to Escherichia coli [E. coli] (principal); N10 Acute pyelonephritis; Z16.19 Resistance to other specified beta lactam antibiotics; I10 Essential (primary) hypertension; I72.2 Aneurysm of renal artery; F10.10 Alcohol abuse, uncomplicated; Z79.899 Other long term (current) drug therapy
CPT/HCPCS: 74177; 76700; 80048; 80053; 81003; 81015; 82962; 82977; 83036; 83605; 83690; 83735; 84100; 84484; 84703; 85025; 85027; 85610; 85730; 87040; 87077; 87086; 87149; 87186; 87205; 93005; 96361; 96374; 96375; 99285; Q9967

== ENCOUNTER 2024-12-23 23:07 | Emergency (ER) | payer OTHER, SELFPAY ==
[2024-12-23 23:09] VITALS: BP 139/92
[2024-12-23 23:37] LABS: Hematocrit 41.5 % (37.0-47.0); Hemoglobin 14.7 g/dL (12.0-16.0); Mean Corp Hgb Conc. 35.4 g/dL (33.0-37.0); Mean Corpuscular Volume 100.2 fL (81.0-99.0); Nucleated Red Blood Cells % 0 %; Platelet Count 250 10^3/uL (130-400); Red Cell Dist. Width 12.9 % (11.5-14.5)
[2024-12-23 23:50] VITALS: BP 121/88
[2024-12-23 23:50] LABS: ALT (SGPT) 91 U/L (0-35); AST (SGOT) 111 U/L (14-36); Albumin 4.5 g/dl (3.5-5.0); Alkaline Phosphatase 90 U/L (38-126); Blood Urea Nitrogen 20 mg/dl (7-17); Calcium 9.7 mg/dl (8.4-10.2); Carbon Dioxide 27 mmol/L (22-30); Chloride 104 mmol/L (98-107); Estimated Creatinine Clearance 79 ml/min; Glucose 152 mg/dl (70-99); Lipase 137 U/L (23-300); Potassium 4.0 mmol/L (3.5-5.1); Sodium 137 mmol/L (135-145); Total Protein 7.7 g/dl (6.3-8.2); eGFR > 60.00
[2024-12-24] VITALS: BP 102/75
[2024-12-24 00:13] LABS: Urine Character Clear (Clear)
[2024-12-24 00:27] VITALS: BMI 21.5
[2024-12-24 01:00] VITALS: BP 107/79
[2024-12-24 02:00] VITALS: BP 123/86
[2024-12-24] MEDS: CARAFATE SUSPENSION 1 GM PO (02:41)
[2024-12-24] MEDS: PROTONIX IV 40 MG IV (02:41)
[2024-12-24 03:00] VITALS: BP 118/82
--- NOTE | 2024-12-24 05:16 | ED.GENMED ---
History of Present Illness
General
Chief Complaint: Abdominal Pain
Source: patient, family and previous hospital records
Exam Limitations: none
Time Seen by Provider: 12/24/24 02:06
Nursing documentation reviewed up to this point in time: agreed with
History of Present Illness
History of Present Illness:
The patient is a 54-year-old female presenting with persistent upper abdominal pain located in the right quadrant radiating to the back. The condition has been occurring daily for about a year, worse over the past week. She was hospitalized here in
May, she was diagnosed with a kidney infection; however, this time there is no associated fever or chills. She denies cough or shortness of breath. She denies dysuria urgency or hematuria. She has had intermittent nausea without vomiting. Rare
loose stools. Previous evaluations by a advertising operations coordinator, including an upper endoscopy, did not reveal any abnormalities. Previous colonoscopy in August was also normal. The pain does not appear to worsen or improve with eating or drinking. The
patient has not been on any acid blockers such as omeprazole or famotidine.
During hospitalization in May there was concern for alcohol withdrawal and patient admits to frequent alcohol consumption, and near daily alcohol consumption.
Past History
Past History
ED Past Medical History: HTN and Other (Chronic upper abdominal pain)
ED Past Surgical History:
Social History
Tobacco: Non-smoker
Alcohol: Daily
Drug: None
Personal:
Living: with family
Employment: Employed
Family History
Family History: Other (Noncontributory)
Phy Exam
Physical Exam
Physical Exam:
GENERAL: 54-year-old woman appears her stated age, bright and alert, pleasant, appears in no acute distress. Accompanied by her and son.
EYE: pupils equal and reactive. anicteric
NECK: Supple, nontender, no meningismus, no significant adenopathy.
ENT: posterior pharynx is clear, oral mucosa is moist. TM clear b/l, nares patent.
CARDIAC: Regular rate and rhythm. no murmur.
LUNGS: Clear breath sounds bilaterally, no acute respiratory distress, no wheezes/rales/rhonchi
ABDOMEN: Soft, nondistended, mild tenderness epigastric as well as right upper quadrant with deep palpation only, no r/g, no cvat. normoactive BS.
NEUROLOGICAL: Alert and oriented x3, no focal neuro deficits.
SKIN: Warm and dry, normal color, skin intact. No rash.
MUSCULOSKELETAL: No C/C/E. peripheral pulses are full and equal b/l. No palpable tenderness.
PSYCH: Normal and appropriate interaction.
Course
Orders/Labs/Results
Orders:
Orders
12/23/24 23:16
Electrocardiogram (*1) Urgent
Reason for Study: Abdominal Pain
EKG- Treatment ONCE
12/23/24 23:19
Alcohol Urgent
Complete Blood Count/With Diff Urgent
Comprehensive Metabolic Panel Urgent
Lipase Urgent
Urinalysis Reflex To Culture Urgent
Date Specimen was Collected: 12/23/24
Time Specimen was Collected: 23:16
12/24/24 02:19
Pantoprazole [Protonix IV] 40 mg IV NOW STA
Sucralfate Suspension [Carafate Suspension] 1 gm PO NOW STA
12/24/24 02:20
CT Abd/pelvis W Iv Cont Urgent
Comment:
Reason For Exam: acute on chronic RUQ abd pain, elevated LFT's
12/24/24 02:26
Add On- LAB Urgent
Tests Added?: alcohol
Abnormal Lab Results
12/23/24
23:19
RBC 4.14 L 10^6/uL
(4.20-5.40)
MCV 100.2 H fL
(81.0-99.0)
MCH 35.5 H pg
(27.0-31.0)
Eosinophils % 6.4 H %
(0-6)
BUN 20 H mg/dl
(7-17)
Glucose 152 H mg/dl
(70-99)
AST 111 H U/L
(14-36)
ALT 91 H U/L
(0-35)
12/23/24 23:19
12/23/24 23:19
Vital Signs
Initial and Last Documented VS:
Initial Vital Signs
Temp Pulse Resp BP Pulse Ox
97.9 F 93 18 139/92 94
12/23/24 23:09 12/23/24 23:09 12/23/24 23:09 12/23/24 23:09 12/23/24 23:09
Last Documented Vital Signs
Temp Pulse Resp BP Pulse Ox
97.9 F 73 16 118/83 97
12/23/24 23:09 12/24/24 05:29 12/24/24 05:29 12/24/24 05:29 12/24/24 05:29
MDM/Problems Addressed
Differential Diagnosis Includes:
The Differential Diagnosis includes, in no particular order and is not limited to:
- Gastritis, potentially secondary to alcohol consumption.
- Peptic ulcer disease.
- Gallbladder disease, including cholecystitis or biliary colic.
- Pancreatitis.
- Hepatitis or other liver-related condition.
- Gastroesophageal reflux disease (GERD).
- Kidney-related issues, considering past calcified aneurysm.
- Gastric malignancy.
- Functional dyspepsia.
- Chronic bronchitis contributing to cough and congestion.
MDM/Problems Addressed:
Acute Problems:
- Acute on chronic upper abdominal pain.
Chronic Problems:
- Elevated liver enzymes.
- Daily alcohol use.
Prior records reviewed.
Previously diagnosed with elevated liver enzymes, potentially secondary to daily alcohol consumption.
CT abdomen pelvis May of this year showed pyelonephritis right kidney but also note of a calcified aneurysm in the right kidney that was stable and unchanged from previous CAT scan 2020.
Patient does admit to continued alcohol use, daily basis.
Labs thus far unremarkable save for mildly elevated LFTs with normal alkaline phosphatase, normal T. bili. Normal lipase. Urinalysis is unremarkable. No evidence of pyelonephritis and she remains afebrile.
EKG is unremarkable as well.
Will trial a dose of Carafate, Protonix and recheck CT abdomen and pelvis.
Will check alcohol level as well.
Chronic conditions affecting care: HTN
*Radiology
Radiology exam reviewed: radiology read reviewed (Cirrhotic liver. Otherwise CT abdomen pelvis shows no acute findings)
*Pulse Oximetry
SaO2: 95
Oxygen Mode of Delivery: Room air
Patient hypoxic: no
*EKG
Interpreted by ED Provider?: Yes
Interpretation: normal
Comparison EKG: no changes (Unchanged from previous May 2024)
Rate: normal
Rhythm: sinus
Emmet: normal axis
Interval: other (Minimal interventricular conduction delay)
QRS Pattern: left vent hypertrophy
Ischemia: no ischemia
*Transmission Builder Interpretation
Rate: normal
Interpretation: normal
Rhythm: sinus
*Critical Care Note
Total Time (30-74mins, 75-104mins- exclusive of procedures): Not Applicable
Update Note
Update Note:
Patient continues to appear comfortable. Resting comfortably. She reports no improvement in right upper quadrant pain after Carafate and Protonix.
CT abdomen pelvis is unremarkable. No acute intra-abdominal findings save for cirrhosis of the liver.
Alcohol level elevated 279.
I have significant concern for patient's daily alcohol consumption and I suspect daily alcohol use is a significant contributor to her right upper quadrant abdominal discomfort. Cirrhosis of the liver could certainly be cause for her abdominal pain
but must also consider an element of gastroduodenitis.
I have urged her to completely discontinue alcohol use and have offered to [facility] consult which she declines. She believes she can stop drinking without difficulty and does not believe she needs outside assistance.
Will initiate a course of Protonix and patient has been urged to follow-up with GI as well.
She has been evaluated by Dr. Leroy in the past.
ED Attending Note
-
Portions of this chart may have been created with voice recognition software.� Occasional wrong word or��sound alike� substitutions may have occurred due to the inherent limitations of voice recognition software.
Discharge Plan
Departure
Patient Disposition: Home (Routine Discharge)
Date of Disposition: 12/24/24
Time of Disposition: 05:19
Patient with high blood pressure during this ER visit?: No
Condition: Good
Discharge Problem:
acute on chronic upper abdominal pain, Cirrhosis of liver, Alcohol use disorder
Instructions: Gastritis (DC), Alcohol use disorder (DC), Abdominal Pain
Prescriptions:
New
pantoprazole [Protonix] 40 mg tablet,delayed release (DR/EC)
40 mg PO DAILY Qty: 30 0RF
No Action
acetaminophen 325 mg Tablet
650 mg PO Q4HPRN PRN (Reason: mild pain/fever)
lisinopril 10 mg Tablet
10 mg PO DAILY
ibuprofen 200 mg Tablet
200 mg PO Q6HPRN PRN (Reason: mild pain/fever)
ciprofloxacin HCl 750 mg tablet
750 mg PO BID 7 Days Qty: 14 0RF
Referrals:
Viola Jack MD [Active, Gastroenterology] - Call in 1-3 days for appt
UNKNOWN - PT NOT,INTERVIEWE [Family Provider]
Interventions
Interventions:
*Risk Screen - Suicide Last Done: 12/23/24 23:09
*General Assessment Last Done: 12/23/24 23:09
*Neglect/Abuse Screening Last Done: 12/23/24 23:09
*ED- Fall Risk Assessment Last Done: 12/23/24 23:15
*ED COVID-19 Vaccine History Last Done: 12/23/24 23:09
*ED Influenza Vaccine History Last Done: 12/23/24 23:15
*Nursing Disposition Last Done: 12/24/24 05:29
DG-Njqjyp-Wexxzapoim Assessment Last Done: 12/24/24 00:27
Discharge Date and Time
Discharge Date/Time: 12/24/24 05:30
Print Language: SETSWANA
[2024-12-24 05:29] VITALS: BP 118/83
== END 2024-12-24 05:30 | disposition home or self-care (01) ==
LOC: EMR 23:07
PROVIDERS: EMERGENCY PHYSICIAN Emergency Medicine
DX: R10.11 Right upper quadrant pain (principal); R11.0 Nausea; R19.7 Diarrhea, unspecified; K74.60 Unspecified cirrhosis of liver; F10.10 Alcohol abuse, uncomplicated; I10 Essential (primary) hypertension
CPT/HCPCS: 99285; 96374; 74177; 80053; 81003; 82077; 83690; 85025; 93005; Q9967